=== PATIENT | male | born 1995 | race Caucasian/White ===

== ENCOUNTER 2020-08-20 09:23 | Emergency (ER) | payer BC ==
[2020-08-20] MEDS ORDERED: NORMAL SALINE 1000 ML 1,000 ML IV ONE (11:05)
[2020-08-20] MEDS ORDERED: ONDANSETRON HCL INJ/PF 4 MG/2 ML SDV IV ONE (11:05)
--- NOTE | 2020-08-20 11:08 | ER Document Report ---
ED GI/ - General Chief Complaint: Nausea/Vomiting/Diarrhea Stated Complaint: NAUSEA/VOMITING/DIARRHEA Time Seen by Provider: 08/20/20 10:59 Notes: CHIEF COMPLAINT: Abdominal pain vomiting diarrhea HPI: 25-year-old male presenting to the emergency department complaining of generalized abdominal pain over the last 5 or 6 days, for 5 episodes of vomiting 2-3 episodes of diarrhea daily. States he had a subjective fever at home 2 days ago. Patient did have a Covid test 5 days ago that was negative. ROS: See HPI - all other systems were reviewed and are otherwise negative Constitutional: no fever Eyes: no drainage, no blurred vision ENT: no runny nose, no sore throat Cardiovascular: no chest pain Resp: no SOB, no cough GI: + vomiting, + diarrhea, + abdominal pain : no dysuria Integumentary: no rash Allergy: no hives Musculoskeletal: no extremity pain or swelling Neurological: no numbness/tingling, no weakness MEDICATIONS: I agree with the patient medications as charted by the RN. ALLERGIES: I agree with the allergies as charted by the RN. PAST MEDICAL HISTORY/PAST SURGICAL HISTORY: Reviewed and agree as charted by RN. SOCIAL HISTORY: Reviewed and agree as charted by RN. FAMILY HISTORY: No significant familial comorbid conditions directly related to patient complaint EXAM: Reviewed vital signs as charted by RN. CONSTITUTIONAL: Alert and oriented and responds appropriately to questions. Slightly ill-appearing; well-nourished HEAD: Normocephalic; atraumatic EYES: PERRL; Conjunctivae clear, sclerae non-icteric ENT: normal nose; no rhinorrhea; moist mucous membranes; pharynx without lesions noted, no uvula edema or deviation, no tonsillar hypertrophy, phonation normal NECK: Supple without meningismus; non-tender; no cervical lymphadenopathy, no masses CARD: RRR; no murmurs, no clicks, no rubs, no gallops; symmetric distal pulses RESP: Normal chest excursion without splinting or tachypnea; breath sounds clear and equal bilaterally; no wheezes, no rhonchi, no rales, pulse oximetry 98% on room air not hypoxic ABD/GI: Obese, normal bowel sounds; non-distended; soft, mild tenderness to the right lower quadrant on palpation, no rebound, no guarding; no palpable organomegaly or masses. BACK: The back appears normal and is non-tender to palpation, there is no CVA tenderness EXT: Normal ROM in all joints; non-tender to palpation; no cyanosis, no effusions, no edema SKIN: Normal color for age and race; warm; dry; good turgor; no acute lesions noted NEURO: Moves all extremities equally; Motor and sensory function intact PSYCH: The patient's mood and manner are appropriate. Grooming and personal hygiene are appropriate. MDM: 25-year-old male presenting with 5 or 6 days of generalized abdominal discomfort with nausea vomiting and diarrhea subjective fevers at home. Patient has tenderness in the right lower quadrant will obtain baseline screening labs hydrate the patient treat nausea and obtain CT imaging to evaluate for appendicitis Past Medical History - Social History Smoking Status: Unknown if Ever Smoked Family History: Reviewed & Not Pertinent Physical Exam - Vital signs Vitals: Temp Pulse Resp BP Pulse Ox 97.8 F 107 H 16 143/89 H 99 08/20/20 09:31 08/20/20 09:31 08/20/20 09:31 08/20/20 09:31 08/20/20 09:31 Course - Re-evaluation Re-evalutation: 08/20/20 14:33 Patient's lab work did not show acute emergent abnormalities. His CT imaging was negative for acute findings. Normal appendix. Patient continues to have some diarrhea here. Nausea has improved. This is likely a viral etiology. He had negative Covid testing 5 days ago. Will treat symptomatically. Zofran for nausea. Bentyl for abdominal cramping. - Vital Signs Vital signs: Temp Pulse Resp BP Pulse Ox 97.8 F 107 H 16 143/89 H 99 08/20/20 09:31 08/20/20 09:31 08/20/20 09:31 08/20/20 09:31 08/20/20 09:31 - Laboratory Result Diagrams: 08/20/20 11:50 08/20/20 11:50 Laboratory results interpreted by me: 08/20/20 08/20/20 08/20/20 11:50 11:50 13:34 Band Neutrophils % 2 L Creatinine 0.48 L Urine Ascorbic Acid 20 H Discharge - Discharge Clinical Impression: Abdominal pain, right lower quadrant Vomiting Qualifiers: Vomiting type: unspecified Vomiting Intractability: non-intractable Nausea presence: with nausea Qualified Code(s): R11.2 - Nausea with vomiting, unspecified Diarrhea Qualifiers: Diarrhea type: unspecified type Qualified Code(s): R19.7 - Diarrhea, unspecified Condition: Stable Disposition: HOME, SELF-CARE Additional Instructions: Take Zofran for nausea, Bentyl for abdominal pain or cramping. Take Kaopectate which is an [id number] medication which slows transit time in the gut to help with diarrhea. Hydrate well at home. Return for worsening symptoms. Your lab work and CT imaging today did not show acute emergent findings, this is likely viral in nature Prescriptions: Dicyclomine HCl [Bentyl 20 mg Tablet] 20 mg PO Q6H PRN #20 tablet PRN Reason: Ondansetron [Zofran Odt 4 mg Tablet] 1 - 2 tab PO Q4H PRN #15 tab.rapdis PRN Reason: For Nausea/Vomiting Referrals: DEONNA ZABALA DO [NO LOCAL MD] - Follow up as needed
[2020-08-20 12:08] LABS: HEMATOCRIT 40.7 % (37.9-51.0); MEAN CORPUSCULAR HEMOGLOBIN 28.5 pg (27.0-33.4); MEAN CORPUSCULAR HGB CONC 34.3 g/dL (32.0-36.0); MEAN CORPUSCULAR VOLUME 83 fl (80-97); PLATELET COUNT 381 10^3/uL (150-450); RED BLOOD COUNT 4.89 10^6/uL (4.35-5.55); RED CELL DISTRIBUTION WIDTH 13.7 % (11.5-14.0); WHITE BLOOD COUNT 10.5 10^3/uL (4.0-10.5)
[2020-08-20 12:20] LABS: ALBUMIN 3.6 g/dL (3.5-5.0); ALKALINE PHOSPHATASE 117 U/L (38-126); ANION GAP 11 (5-19); ASPARTATE AMINO TRANSFERASE 47 U/L (17-59); BILIRUBIN,DIRECT 0.1 mg/dL (0.0-0.4); BILIRUBIN,TOTAL 0.4 mg/dL (0.2-1.3); BLOOD UREA NITROGEN 11 mg/dL (7-20); CALCIUM 9.1 mg/dL (8.4-10.2); CARBON DIOXIDE 23 mmol/L (22-30); CHLORIDE 106 mmol/L (98-107); GLUCOSE 105 mg/dL (75-110); POTASSIUM 3.7 mmol/L (3.6-5.0); TOTAL PROTEIN 7.3 g/dL (6.3-8.2)
--- NOTE | 2020-08-20 12:24 | RADIOLOGY REPORT (SQ) ---
EXAM DESCRIPTION: CT ABD/PELVIS WITH IV ONLY IMAGES COMPLETED DATE/TIME: 08/20/2020 12:05 pm REASON FOR STUDY: r/o appendicitis COMPARISON: None. TECHNIQUE: CT scan of the abdomen and pelvis performed using helical scanning technique with dynamic intravenous contrast injection. No oral contrast. Images reviewed with lung, soft tissue, and bone windows. Reconstructed coronal and sagittal MPR images reviewed. Delayed images for evaluation of the urinary system also acquired. All images stored on PACS. All CT scanners at this facility use dose modulation, iterative reconstruction, and/or weight based d osing when appropriate to reduce radiation dose to as low as reasonably achievable (ALARA). [facility]: Dose Right [facility]: CareDose [facility]: Dose Right [facility]: Teradose 4D [facility]: AnonymAsk CONTRAST TYPE AND DOSE: contrast/concentration: Isovue 350.00 mmol/ml; Total Contrast Delivered: 100 .0 ml; Total Saline Delivered: 47.3 ml RENAL FUNCTION: None required. The patient is less than 50 years old. RADIATION DOSE: CT Rad equipment meets quality standard of care and radiation dose reduction techniq ues were employed. CTDIvol: 17.8 - 20.6 mGy. DLP: 2286 mGy-cm.. LIMITATIONS: None. FINDINGS: LOWER CHEST: No significant findings. No nodules or infiltrates. LIVER: Normal size. No masses. No dilated ducts. SPLEEN: Normal size. No focal lesions. PANCREAS: No masses. No significant calcifications. No adjacent inflammation or peripancreatic fluid collections. Pancreatic duct not dilated. GALLBLADDER: No identified stones by CT criteria. No inflammatory changes to suggest cholecystitis. ADRENAL GLANDS: No significant masses or asymmetry. RIGHT KIDNEY AND URETER: No solid masses. No significant calcifications. No hydronephrosis or hyd roureter. LEFT KIDNEY AND URETER: No solid masses. No significant calcifications. No hydronephrosis or hydr oureter. AORTA AND VESSELS: No aneurysm. No dissection. Renal arteries, SMA, celiac without stenosis. RETROPERITONEUM: No retroperitoneal adenopathy, hemorrhage or masses. BOWEL AND PERITONEAL CAVITY: No masses or inflammatory changes. No free fluid or peritoneal masses. APPENDIX: Normal. PELVIS: No mass. No free fluid. Normal bladder. ABDOMINAL WALL: No masses. No hernias. BONES: No significant or acute findings. OTHER: No other significant finding. IMPRESSION: NORMAL APPENDIX. NO SIGNIFICANT OR ACUTE FINDING IN THE ABDOMEN OR PELVIS ON CT SCAN WI IV CONTRAST. TECHNICAL DOCUMENTATION: JOB ID: [id number] Quality ID # [id number]: Final reports with documentation of one or more dose reduction techniques (e.g., Au tomated exposure control, adjustment of the mA and/or kV according to patient size, use of iterative reconstruction technique) 2010 [employer]- All Rights Reserved Reading location - IP/workstation name: [email or web address]
[2020-08-20 12:36] LABS: ABSOLUTE MONOCYTES # (MANUAL) 1.1 10^3/uL (0.1-1.4); BAND NEUTROPHILS % (MANUAL) 2 % (3-5); BASOPHILS % (MANUAL) 1 % (0-2); EOSINOPHILS % (MANUAL) 0 % (0-6); LYMPHOCYTES % (MANUAL) 29 % (13-45); METAMYELOCYTES % (MANUAL) 1 % (0-1); MONOCYTES % (MANUAL) 10 % (3-13); RBC MORPHOLOGY COMMENT NORMO-CYTIC/CHROMIC; SEGMENTED NEUTROPHILS % (MAN) 57 % (42-78); TOTAL CELLS COUNTED 100
[2020-08-20 12:37] LABS: PLATELET COMMENT ADEQUATE
[2020-08-20 13:48] LABS: APPEARANCE,URINE CLEAR; BILIRUBIN,URINE NEGATIVE (NEGATIVE); COLOR,URINE YELLOW; GLUCOSE, URINE NEGATIVE (NEGATIVE); KETONES,URINE NEGATIVE (NEGATIVE); LEUKOCYTE ESTERASE,URINE NEGATIVE (NEGATIVE); NITRITE,URINE NEGATIVE (NEGATIVE); PROTEIN,URINE NEGATIVE (NEGATIVE); URINE SPECIFIC GRAVITY 1.051; UROBILINOGEN,URINE NEGATIVE mg/dL (<2.0)
[2020-08-20] MEDS ORDERED: NORMAL SALINE 1000 ML 1,000 ML IV PRN (13:51)
[2020-08-20] MEDS ORDERED: LOPERAMIDE HCL 2 MG CAPSULE PO ONE (13:51)
[2020-08-20] MEDS ORDERED: DICYCLOMINE HCL INJ 20 MG/2 ML AMPULE IM ONE (13:51)
[2020-08-20 15:26] VITALS: BP 140/80
--- OUTSIDE RECORDS SUMMARY | 2020-08-21 15:26 | XMS REPORT ---
:1995 Author Organization [facility] Address [facility] [place] [address] [place] [address] Care Team Providers Name Role Phone Unavailable Unavailable Unavailable Allergies, Adverse Reactions, Alerts Allergy Name Allergy Status Severity Reaction(s) Onset Inactive Treat ing Comments Type Date Date Clinician Amoxicillin Allergy to Active substance Medications Ordered Filled Start Stop Current Ordering Indication Dosage Frequency Signature Comments Components Medication Medication Date Date Medication? Clinician (SIG) Name Name ondansetron 2019-10 Yes ondansetro 4 mg 1-07 n 4 mg disintegrat 16:31: disintegra ing [address] ting tabletPlace tablet [address] 2 by tablets by translingua translingu l route. al route. ondansetron No 2 ondansetro 4 mg n 4 mg disintegrat disintegra ing tablet ting Place [address] 2 translingua tablets by l route. translingu al route. ondansetron No 1 Q8H ondansetro HCl 8 mg n HCl 8 mg tablet Take tablet 1 tablet Take 1 every 8 tablet hours by every 8 oral route hours by as needed. oral route for nausea as needed. and for nausea vomiting and vomiting benzonatate No 1capsul TID benzonatat 200 mg e(s) e 200 mg capsule capsule Take 1 Take 1 capsule 3 capsule 3 times a day times a by oral day by route for oral route 10 days. for 10 days. guaifenesin No 1 Q12H guaifenesi ER 600 mg n ER 600 tablet, mg tablet, extended extended release 12 release 12 hr Take 1 hr Take 1 tablet tablet every 12 every 12 hours by hours by oral route oral route for 10 for 10 days. days. Problems This patient has no known problems. Procedures Procedure Date / Time Performed Performing Clinician Luis F tenorio pulse oximetry (PROC) 2020-08-15 00:00:00 pulse oximetry (PROC) 2020-07-13 00:00:00 Results Test Description Test Time Test Comments Text Results Atomic Results Result Comments Bacteria identified in Throat by Culture 2020-07-16 00:00:00 Test Item Value Reference Range Comments Bacteria identified in Throat by Culture (test code = 626-2) see note SARS coronavirus 2 RNA [Presence] in Respiratory specimen by FREDRICK with probe [id number] 00:00:00 Test Item Value Reference Range Comments SARS coronavirus 2 RNA [Presence] in not detected not detecte d Respiratory specimen by FREDRICK with probe detection (test code = 79282-7) Assessments Condition Name Status Diagnosis Date Treating Clinici an Risk of exposure to communicable Active 2020-08-15 16:4 3:40 disease Fever Active 2020-08-15 16:43:48 Viral gastroenteritis Active 2020-08-15 16:43:52 Medical examination for suspected Active 2020-07-13 16: 13:50 condition Cough Active 2020-07-13 16:23:21 Pain in throat Active 2020-07-13 15:48:15 Encounters Start End Encounter Admission Attending Care Care Encounter Date/Time Date/Time Type Type Clinicians Facility Department ID 2020-08-15 2020-08-15 Sapna Lynn [facility] [id number] 00:00:00 00:00:00 [place] AGENT: [facility] & [id number] [address] [place] [address], Ph. 2020-07-13 2020-07-13 Erica [facility] [id number] 00:00:00 00:00:00 [place] [facility] & [id number] PA-C: [address] [place] [id number], Ph. Social History Smoking Status Start Date Stop Date Never Smoker Vital Signs Vital Name Observation Time Observation Value Comments BP Diastolic 2020-08-15 00:00:00 40 mm[Hg] Height 2020-08-15 00:00:00 75 [in_i] BMI (Body Mass Index) 2020-08-15 00:00:00 33.7 kg/m2 BP Systolic 2020-08-15 00:00:00 67 mm[Hg] Body Weight 2020-08-15 00:00:00 270 [lb_av] Height 2020-07-13 00:00:00 75 [in_i] BMI (Body Mass Index) 2020-07-13 00:00:00 32.5 kg/m2 Body Weight 2020-07-13 00:00:00 260 [lb_av] Hospital Discharge Instructions 1. Risk of exposure to communicable disease pulse oximetry (PROC) rapid SARS CoV 2 Ag, QL IA, respiratory specimen ondansetron 4 mg disintegrating tablet 2. Fever rapid strep group A, throat rapid flu (A+B) 3. Viral gastroenteritis ondansetron HCl 8 mg tablet Discussion Note: None recorded. Patient educational handouts: No information available.1. Pain in throat pulse oximetry (PROC) rapid flu (A+B) rapid strep group A, throat c ulture, throat Magic Mouthwash 2. 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 Cough benzonatate 200 mg capsule guaifenesin ER 600 mg tablet, extended release 12 hr Discussion Note Out of work pending covid results. After pe rforming a Medical Screening Examination, I estimate there is LOW risk for ACUTE CORONARY SYNDROME, RESPIRATORY FAILURE, SEPSIS OR MENINGITIS, thus I consider the discharge disposition reasonable. The patient and I have discussed the diagnosis and risks, and we agree with discharging home with close follow-up. We also discussed returning to the Office immediately if new or worsening symptoms occur. We have discussed the symptoms which are most concerning (e.g., changing or worsening pain, trouble swallowing or breathing, neck stiffness, fever) that necessitate immediate return. Patient educational handouts: No information available.
== END 2020-08-20 15:27 | disposition home or self-care (01) ==
LOC: ER 09:23
DX: R10.84 Generalized abdominal pain (principal); R10.813 Right lower quadrant abdominal tenderness; R11.2 Nausea with vomiting, unspecified; R19.7 Diarrhea, unspecified
CPT/HCPCS: 99285; 96372; 96361; 96374; 36415; 83690; 85025; 80053; 81001; 74177; J0500; J2405; J7030